=== PATIENT | female | born 1995 | race African-American/Black ===

== ENCOUNTER 2017-07-23 18:29 | Emergency (ER) | payer MEDICAID, OTHER ==
--- OUTSIDE RECORDS SUMMARY | 2017-07-23 18:41 | XMS | Clinical Summary ---
:1995 Author Organization [facility] Address [address] [place] [address] Phone Care Team Providers Name Role Phone , Primary Care Provider Unavailable Allergies Active Allergy Reactions Severity Noted Date Comments Aspirin Other (See Comments) 11/12/2014 Kidney damage Ibuprofen Other (See Comments) 08/01/2015 Not to take due to ckd Current Medications Prescription Sig. Disp. Refills Start Date End Date Status acyclovir (ZOVIRAX) 400 MG Take 400 mg by 04/10/2017 Active tablet mouth. ALPRAZolam (XANAX) 0.25 MG Take 0.25 mg by 07/21/2016 Active tablet mouth. amLODIPine (NORVASC) 10 MG Take 10 mg by 04/10/2017 04/10/2018 Active tablet mouth. carvedilol (COREG) 25 MG Take 50 mg by 06/21/2016 Active tablet mouth. clobetasol (TEMOVATE) 0.05 Apply Active % cream topically. thiamine 100 MG tablet Take 100 mg by 05/12/2016 Active mouth. sevelamer (RENVELA) 800 mg Take 800 mg by 04/19/2016 Active tablet mouth. predniSONE (DELTASONE) 10 Use for a total 10/19/2016 Active MG tablet of 25mg/day for 4 weeks then 20mg/day thereafter. metoclopramide HCl (REGLAN) Take 10 mg by 01/07/2016 Active 10 MG tablet mouth. ondansetron (ZOFRAN-ODT) 4 Take 4 mg by 06/29/2016 Active MG disintegrating tablet mouth. losartan (COZAAR) 100 MG Take 100 mg by 07/21/2016 Active tablet mouth. Saccharomyces boulardii Take 250 mg by Active (FLORASTOR) 250 mg capsule mouth. cyclobenzaprine (FLEXERIL) Take 5-10 mg by 10/06/2016 Active 5 MG tablet mouth. famotidine (PEPCID) 20 MG Take 20 mg by 07/21/2016 Active tablet mouth. folic acid (FOLVITE) 1 MG TAKE 1 TABLET(1 03/09/2017 Active tablet MG) BY MOUTH DAILY HYDROcodone-acetaminophen Take 1 tablet 03/29/2017 Active (NORCO 10-325) 10-325 mg by mouth. per tablet HYDROmorphone (DILAUDID) 4 Take 4 mg by Active MG tablet mouth. hydroxychloroquine Take 200 mg by 04/10/2017 Active (PLAQUENIL) 200 mg tablet mouth. lidocaine-prilocaine (EMLA) Apply 04/19/2016 Active 2.5-2.5 % cream topically. ALPRAZolam (XANAX) 0.25 MG TAKE 1 TABLET 10/16/2016 Active tablet BY MOUTH TWICE DAILY NEEDED FOR ANXIETY albuterol HFA (VENTOLIN Inhale 2 puffs 11/08/2016 Active HFA) 90 mcg/actuation by mouth via inhaler inhaler. Active Problems Not on file Encounters Date Type Specialty Care Team Description 07/16/2017 Telephone Transplant Guillermo Appointment (Per Gifty patient she will be here for her appt. Patient called for the preps for the occult blood and she verbalized understanding. ) 05/30/2017 Orders Only Transplant Avani Bhatia Hyperlipidemia, Hepatology B., unspecified hyperlipidemia type;End stage renal disease (HCC);Abnormal blood chemistry;Pre-operative cardiovascular examination 05/30/2017 Office Visit Transplant Avani Bhatia ESRD (end stage renal MD Dewey disease) (HCC) (Primary Lele Figueroa RN Dx) 05/28/2017 Orders Only Transplant Lele Figueroa RN Hyperlipidemia, unspecified hyperlipidemia type (Primary Dx);End stage renal disease (HCC);Abnormal blood chemistry;Pre-operative cardiovascular examination 05/17/2017 Abstract Transplant Sarah Wright 04/26/2017 Abstract Transplant Sarah Wright 04/25/2017 Abstract Transplant James Alanis from Last 3 Months Social History Tobacco Use Types Packs/Day Years Used Date Never Smoker Sex Assigned at Date Recorded Not on file Last Filed Vital Signs Not on file Plan of Treatment Date Type Specialty Care Team Description 07/25/2017 Orders Only Lab Avani Bhatia MD [address] [id number] 07/25/2017 Appointment Cardiology Avani Bhatia MD [address] [place] [id number] 07/25/2017 Appointment Radiology Avani Bhatia MD [address] [place] [id number] 07/25/2017 Appointment Radiology Avani Bhatia MD [address] [place] [phone] 07/25/2017 Appointment Cardiology Avani Bhatia MD [address] [place] [id number] 07/25/2017 Appointment Radiology Avani Bhatia MD [address] [place] [id number] 07/25/2017 Evaluation Transplant 07/25/2017 Evaluation Transplant Health Maintenance Due Date Last Done Comments INFLUENZA VACCINE 06/10/2017 Results TRANSFUSION SERVICE REPORT - SCAN (05/31/2017 5:45 PM)Type and Screen, Automated (05/30/2017 11:47 AM) Component Value Ref Range ABO/RH AUTOMATED (BEAKER) O POSITIVE Ab Scrn NEGATIVE Specimen Performing Laboratory Blood [facility] [address] [id number] from Last 3 Months
[2017-07-23 19:42] LABS: Mean Platelet Volume 7.2 fL (7.4-10.4); Red Blood Cell (RBC) Count 3.23 mill/uL (4.20-5.40); White Blood Cell (WBC) Count 7.5 thou/uL (4.8-10.8)
[2017-07-23 19:51] LABS: ALT (SGPT) 16 U/L (8-55); AST (SGOT) 16 U/L (5-34); Alkaline Phosphatase 146 U/L (40-150); Anion Gap 21 mmol/L (10-20); BUN (Urea Nitrogen) 52 mg/dL (7.0-18.7); Bilirubin, Total 0.4 mg/dL (0.2-1.2); Calc. Creatinine Clearance 0 mL/min (70-130); Calcium 8.7 mg/dL (7.8-10.44); Carbon Dioxide 21 mmol/L (22-29); Chloride 100 mmol/L (98-107); Estimated GFR-MDRD 11; Globulin 2.9 g/dL (2.4-3.5)
[2017-07-23 19:53] LABS: #Monocytes 0.3 thou/uL (0.11-0.59); #Neutrophils 6.2 thou/uL (1.40-6.50); %Basophils 0.2 % (0.0-1.0); %Eosinophils 0.2 % (0.0-10.0); %Lymphocytes 13.5 % (21.0-51.0); Anisocytosis SLIGHT = 6-15 cells (100X) (0-5/hpf); Neutrophil 93 % (42-75)
== END 2017-07-23 20:36 | disposition left against medical advice (07) ==
LOC: ERS 18:29
DX: Z53.21 Procedure and treatment not carried out due to patient leaving prior to being seen by health care provider (principal)
CPT/HCPCS: 36415; 80053; 85025

== ENCOUNTER 2017-11-30 21:32 | Emergency (ER) | payer OTHER, SELFPAY ==
[2017-11-30 22:38] LABS: #Lymphocytes 1.6 thou/uL (1.20-3.40); #Monocytes 0.6 thou/uL (0.11-0.59); #Neutrophils 3.2 thou/uL (1.40-6.50); %Basophils 0.3 % (0.0-1.0); %Eosinophils 0.9 % (0.0-10.0); %Lymphocytes 29.4 % (21.0-51.0); %Monocytes 10.1 % (0.0-10.0); %Neutrophils 59.3 % (42.0-75.0); Hemoglobin 9.5 g/dL (12.0-16.0); Mean Corpuscular HGB CONC 32.4 g/dL (32.0-36.0); Mean Corpuscular Hemoglobin 30.9 pg (27.0-31.0); Mean Corpuscular Volume 95.4 fl (81.0-99.0); Mean Platelet Volume 6.3 fL (7.4-10.4); Platelet Count 267 thou/uL (130-400); RBC Distribution Width 13.9 % (11.5-14.5); Red Blood Cell (RBC) Count 3.07 mill/uL (4.20-5.40); White Blood Cell (WBC) Count 5.4 thou/uL (4.8-10.8)
[2017-11-30 22:57] LABS: ALT (SGPT) 16 U/L (8-55); AST (SGOT) 15 U/L (5-34); Albumin 3.9 g/dL (3.5-5.0); Alkaline Phosphatase 133 U/L (40-150); Anion Gap 12 mmol/L (10-20); BUN (Urea Nitrogen) 17 mg/dL (7.0-18.7); Bilirubin, Total 0.6 mg/dL (0.2-1.2); Calc. Creatinine Clearance 0 mL/min (70-130); Calcium 9.7 mg/dL (7.8-10.44); Carbon Dioxide 27 mmol/L (22-29); Chloride 105 mmol/L (98-107); Estimated GFR-MDRD 21; Globulin 2.7 g/dL (2.4-3.5); Glucose 87 mg/dL (70-105); Potassium 4.5 mmol/L (3.5-5.1); Protein, Total 6.6 g/dL (6.0-8.3); Sodium 139 mmol/L (136-145)
[2017-11-30 23:26] LABS: BHCG - Serum Negative (NEGATIVE); Pregs Control Background? CLEAR/WHITE (CLR/WHITE); Pregs Control Bar Appear? YES (CONTROL BAR)
[2017-12-01 00:43] LABS: Bilirubin Negative (Negative); Blood, Urine Negative (Negative); Clarity CLEAR (Clear); Glucose, Urine (Dipstick) Negative (Negative); Leukocyte Negative (Negative); Nitrite Negative (Negative); Protein, Urine (Dipstick) 100 mg/dL (Neg-Trace); Specific Gravity, Urine 1.008 (1.002-1.036); Urobilinogen 0.2 mg/dL (0.2-1.0); pH, Urine 8.5 (5.0-9.0)
[2017-12-01 00:46] LABS: Bacteria/HPF None Seen HPF (None Seen); Hyaline Casts/LPF 0-3 HYALINE CAST LPF (0-3 Hyaline); Pathc Cast-AUWi Flag 0.14 (0-2.49); RBC/HPF 0-3 HPF (0-3); Squamous Epithelial 0-3 HPF (0-3); WBC/HPF 0-3 HPF (0-3)
[2017-12-01] MEDS ORDERED: Dexamethasone 10 MG/ML VIAL ONE (00:47)
[2017-12-01] MEDS ORDERED: Fentanyl 100 MCG/2 ML VIAL ONE (00:47)
== END 2017-12-01 01:14 | disposition home or self-care (01) ==
LOC: ERS 21:32
DX: M32.9 Systemic lupus erythematosus, unspecified (principal); D64.9 Anemia, unspecified; F41.9 Anxiety disorder, unspecified; I50.9 Heart failure, unspecified; G43.909 Migraine, unspecified, not intractable, without status migrainosus; K21.9 Gastro-esophageal reflux disease without esophagitis; N18.6 End stage renal disease; Z99.2 Dependence on renal dialysis; Z79.899 Other long term (current) drug therapy
CPT/HCPCS: 36415; 80053; 81003; 81015; 84703; 85025; 96372; J1100; J3010